=== PATIENT | female | born 1995 | race Caucasian/White ===

== ENCOUNTER 2024-12-02 17:39 | Emergency (ER) | payer SELFPAY ==
[2024-12-02 18:00] VITALS: TEMP 97.8; O2SAT 100
--- NOTE | 2024-12-02 18:38 | ERPHSYRPT ---
- History of Present Illness Time Seen by Provider: 12/02/24 17:47 Patient Subjective Stated Complaint: patient states she had a tooth broke off Sunday evening, started taking left over ATB Sunday after noticing swelling sunday morning. Some pain and irritation Left upper tooth. Triage Nursing Assessment: patient ambulates per self with boyfriend at side. C/o tooth pain from left upper mouth. Pt stated she has been taking left over ATB for swelling but noticed the swelling has not subsided since starting the Doxycycline. Allergies/Adverse Reactions: No Known Drug Allergies Allergy (Unverified 02/12/15 13:35) Hx Tetanus, Diphtheria Vaccination/Date Given: Yes Hx Influenza Vaccination/Date Given: No Hx Pneumococcal Vaccination/Date Given: No Immunizations Up to Date: Yes Travel Risk - International Travel Have you traveled outside of the country in past 3 weeks: No - Emerging Infectious Disease Are you exhibiting symptoms associated with any current EIDs: No - Past Medical History Pertinent Past Medical History: Yes Respiratory History: Asthma Endocrine Medical History: Hypoglycemia - Past Surgical History Past Surgical History: No - Female History Hx Last Menstrual Period: 11/12/2024 Hx Now: No - Social History Smoking Status: Former smoker Drug Use: marijuana - Social Determinants of Health Will the patient participate in the screening: Yes Do you worry about a steady place to live?: No Do you have any problems with any of the following?: No known problems In the past 12 months,have you had to go without utilities?: No Transportation Issues: No Has anyone in your support network made you feel unsafe?: No Have you or anyone in your house had to go w/o enough food: No - Nursing Vital Signs Nursing Vital Signs: Initial Vital Signs Temperature 97.8 F 12/02/24 17:47 Pulse Rate 94 H 12/02/24 17:47 Respiratory Rate 20 12/02/24 17:47 Blood Pressure 105/58 12/02/24 17:47 O2 Sat by Pulse Oximetry 100 12/02/24 17:47 Pain Scale Pain Intensity 2 - Physical Exam SpO2: 100 - Departure Departure Disposition: Home Clinical Impression: Tooth fracture, Dental infection Condition: Stable Critical Care Time: No Referrals: PATRICK GUNTER MD [Primary Care Provider, [facility]] - Follow up/PCP as directed Instructions: Tooth Decay, Adult (DC), Dental Pain (DC) Additional Instructions: Call your dentist in the morning for close follow-up. You have been evaluated for an emergency medical condition. At this time, given the current history and events presented, the examination conducted and any possible testing you may have had, you have been given a presumptive diagnosis based on the current information is obtained. Your discharge diagnosis is presumptive and not necessarily definitive. Medical conditions present in various stages very often without all the symptoms or findings described in medical literature. Other symptoms, concerns or conditions may arise and your diagnoses may evolve or change and/or your condition could potentially worsen after the time of disposition or discharge. You have been given a presumptive diagnosis and your condition appears to be stable, but your medical issues can change or worsen. If there is worsening of your condition including difficulty breathing, swallowing, speaking, chest pain or pressure, intractable vomiting, worsening or changing mental status, numbness, tingling or weakness of your body or arms or legs, thoughts or plans of harming yourself or others, or any other concerns, call 911 and/or return immediately to the closest emergency department. It is important you follow-up with your doctor on the next business day. Call y our doctor, or the referral provided if you do not have a doctor, when they open to schedule a follow-up appointment in the next 1 or latest 2 days. Please refer to the attached sheet. If you do not have primary care doctor, you can call the [facility] referral line at [phone]. Return immediately if your symptoms worsen or if you are unable to obtain further care. My team and I thank you for choosing the [facility] Emergency Department emergency healthcare needs. We wish you a speedy recovery. Very respectfully, Dr. César Davis M.D. [place] [employer] Board-certified Emergency Physician Prescriptions: Ibuprofen [Ibu] 800 mg PO Q8H PRN PRN #20 tablet PRN Reason: Pain Chlorhexidine [Chlorhexidine Flavor] 5 ml MC QID #100 Penicillin V Potassium 500 mg PO QID 10 Days #40 tablet
[2024-12-02 18:53] VITALS: BP 110/68; PULSE 78; RESP 18
== END 2024-12-02 18:56 | disposition home or self-care (01) ==
LOC: ED 17:39
DX: S02.5XXA Fracture of tooth (traumatic), initial encounter for closed fracture (principal); K04.7 Periapical abscess without sinus; K08.89 Other specified disorders of teeth and supporting structures; Z79.899 Other long term (current) drug therapy